=== PATIENT | female | born 1945 | race Asian ===

== ENCOUNTER → 2017-02-23 | Outpatient (CLI) | payer MEDICARE, OTHER ==
[~2017-02-23] MED LIST: PERCOCET 325 MG1 TA2 PO; ZOCOR 10MG10 MG PO
== END ==
LOC: MC.RAD 09:10
DX: Z12.31 Encounter for screening mammogram for malignant neoplasm of breast (principal)

== ENCOUNTER 2017-07-13 20:13 | Emergency (ER) | payer MEDICARE, OTHER ==
[~2017-07-13] VITALS: Ht 162.6 cm; Wt 59.1 kg
[2017-07-13 20:16] VITALS: BP 188/91; TEMP 98.9
[2017-07-13] MEDS ORDERED: ASPIRIN 81M81 MG/TA2 PO (20:19)
[2017-07-13] MEDS ORDERED: VITAMIN D31000 I1 PO (20:20)
[2017-07-13 20:38] LABS: COLLECTION METHOD CLEAN CATCH
[2017-07-13 20:57] LABS: AMORPHOUS CRYSTAL Present /uL; MUCOUS Present /lpf; PH 8 (5-8); SQUAMOUS EPITHELIAL 0-2 /hpf; URINE APPEARANCE Hazy; URINE BACTERIA None Seen /hpf; URINE BILIRUBIN Negative (NEGATIVE); URINE BLOOD 2+ (NEGATIVE); URINE COLOR Yellow; URINE GLUCOSE Negative (NEGATIVE); URINE KETONE Negative (NEGATIVE); URINE LEUKOCYTE ESTERASE 3+ (NEGATIVE); URINE PROTEIN(semi-quant) Negative (NEGATIVE); URINE RBC 20-50 /hpf; URINE UROBILINOGEN Negative (NEGATIVE); URINE WBC >50 /hpf
[2017-07-13] MEDS ORDERED: LEVAQUIN 2250 MG/TAB PO (21:10)
[2017-07-13 21:26] VITALS: PULSE 71
== END 2017-07-13 21:26 | disposition home or self-care (01) ==
LOC: COL.ER 20:13
PROVIDERS: Nurse Practitioner
DX: N39.0 Urinary tract infection, site not specified (principal); Z87.442 Personal history of urinary calculi; Z98.51 Tubal ligation status; Z79.82 Long term (current) use of aspirin

== ENCOUNTER → 2018-03-11 | Outpatient (CLI) | payer MEDICARE, OTHER ==
[~2018-03-11] MED LIST changes: +ASPIRIN 81M81 MG/TA2 PO; +LEVAQUIN 2250 MG/TAB PO; +VITAMIN D31000 I1 PO
== END ==
LOC: MC.RAD 12:42
DX: Z12.31 Encounter for screening mammogram for malignant neoplasm of breast (principal)

== ENCOUNTER → 2019-01-17 | Outpatient (CLI) | payer MEDICARE, OTHER | LOC: COL.RAD 06:53 | DX: B19.20 Unspecified viral hepatitis C without hepatic coma (principal); B19.10 Unspecified viral hepatitis B without hepatic coma ==

== ENCOUNTER → 2019-03-17 | Outpatient (CLI) | payer MEDICARE, OTHER | LOC: MC.RAD 08:11 | DX: Z12.31 Encounter for screening mammogram for malignant neoplasm of breast (principal) ==

== ENCOUNTER → 2019-03-31 | Outpatient (CLI) | payer MEDICARE, OTHER | LOC: COL.RAD 03-28 09:45 | DX: N28.1 Cyst of kidney, acquired (principal); R03.0 Elevated blood-pressure reading, without diagnosis of hypertension ==

== ENCOUNTER 2019-06-13 06:45 | Outpatient (CLI) | payer MEDICARE, OTHER ==
[~2019-06-13] VITALS: Ht 162.6 cm; Wt 60.6 kg
[2019-06-13] VITALS (8 sets, daily range): BP systolic 124–146; BP diastolic 73–83; PULSE 45–57; TEMP 97.8
[~2019-06-13 06:45] MED LIST changes: +MASON NATURAL2000 IU PO; -VITAMIN D31000 I1 PO
[2019-06-13 07:30] LABS: HEMATOCRIT 37.7 % (37.0-47.0); HEMOGLOBIN 12.7 g/dl (12.5-16.0); MEAN CELL VOLUME 96 fl (80.0-100.0); MEAN CORPUSCULAR HEMOGLOBIN 32 pg (27.0-31.0); MEAN CORPUSCULAR HGB CONC 34 g/dl (33.0-37.0); MEAN PLATELET VOLUME 9.6 fl (7.4-10.4); PLATELET COUNT 154 K/mm3 (130-400); RED BLOOD COUNT 3.93 M/mm3 (4.10-5.30); REDCELL DISTRIBUTION WIDTH-CV 13.2 % (11.5-14.5)
[2019-06-13 07:41] LABS: CALCIUM 8.5 mg/dL (8.4-10.2); CREATININE, serum 0.78 (0.52-1.25); POTASSIUM 4.5 mmol/L (3.4-5.0)
[2019-06-13] MEDS ORDERED: FOSAMAX 70MG TA70 MG PO (08:04)
[2019-06-13] MEDS ORDERED: NORVASC 5MG5 MG/TAB PO (08:05)
[2019-06-13] MEDS ORDERED: TAMBOCOR50 MG PO (08:05)
--- NOTE | 2019-06-13 11:24 | NUR ---
Discharge instructions given to pt.pt verbalizes understanding.INT removed,catheter tip intact.Pt escortedout by this nurse via wheelchair.
== END 2019-06-13 11:26 | disposition home or self-care (01) ==
LOC: COL.RAD 06:45
PROVIDERS: Internal Medicine Cardiovascular Disease
DX: I34.0 Nonrheumatic mitral (valve) insufficiency (principal); Q21.1 Atrial septal defect; I51.7 Cardiomegaly
CPT/HCPCS: J2704; J7120

== ENCOUNTER → 2019-06-19 | Outpatient (CLI) | payer MEDICARE, OTHER ==
[~2019-06-19] MED LIST changes: +FOSAMAX 70MG TA70 MG PO; +NORVASC 5MG5 MG/TAB PO; +TAMBOCOR50 MG PO
== END ==
LOC: COL.RAD 08:00
DX: N28.1 Cyst of kidney, acquired (principal); B19.10 Unspecified viral hepatitis B without hepatic coma

== ENCOUNTER 2019-07-13 09:31 | Day surgery (SDC) | payer MEDICARE, OTHER ==
[2019-07-13] VITALS (9 sets, daily range): BP systolic 123–154; BP diastolic 59–73; PULSE 51–65; TEMP 97–98.4
[~2019-07-13] VITALS: Ht 162.7 cm; Wt 60.8 kg
[2019-07-13 10:04] LABS: HEMATOCRIT 37.8 % (37.0-47.0); HEMOGLOBIN 12.5 g/dl (12.5-16.0); MEAN CELL VOLUME 97 fl (80.0-100.0); MEAN CORPUSCULAR HEMOGLOBIN 32 pg (27.0-31.0); MEAN CORPUSCULAR HGB CONC 33 g/dl (33.0-37.0); MEAN PLATELET VOLUME 10.2 fl (7.4-10.4); PLATELET COUNT 134 K/mm3 (130-400); RED BLOOD COUNT 3.91 M/mm3 (4.10-5.30)
[2019-07-13 10:05] LABS: PROTHROMBIN TIME 11.9 SECONDS (9.7-12.8)
[2019-07-13 10:13] LABS: CALCIUM 8.7 mg/dL (8.4-10.2); CREATININE, serum 0.8 (0.52-1.25); POTASSIUM 4.7 mmol/L (3.4-5.0)
[2019-07-13] MEDS ORDERED: VOLTAREN GEL 1%1 TU TP (10:31)
[2019-07-13] MEDS ORDERED: ADVIL200 MG PO (10:32)
--- NOTE | 2019-07-13 10:44 | NUR ---
Pt to procedure,report to BHARATI Hough.
--- NOTE | 2019-07-13 10:54 | NUR ---
SEE MERGE FOR MEDICATION ADMINISTRATION TIMES AND INTRA AND POST SEDATION ASSESSMENTS.
--- NOTE | 2019-07-13 12:19 | NUR ---
BEDSIDE HAND OFF REPORT GIVEN TO BHARATI KITCHEN. HEMOSTASIS NOTED, DRESSING C/D/I. ARM SLING IN PLACE. PT ALERT AND ORIENTED. FAMILY AT BEDSIDE. NS INFUSING AT 100ML/HR.
--- NOTE | 2019-07-13 17:30 | NUR ---
Pt with uneventful shift. VSS. Ice pack in place to left chest. No further needs reported. Call light in reach.
--- NOTE | 2019-07-13 20:00 | NUR ---
Initial shift assessment done- VSS, states having some pain to pacemaker site 02/08- will give Mars as ordered, Ice to incision, Sling to left arm on, Tele on, Up in room on own- steady on feet-. No requests
[2019-07-14 03:50] VITALS: BP 120/64; PULSE 60
--- NOTE | 2019-07-14 05:42 | NUR ---
Quiet night tonight-- no requests, denies need for pain med at this time-VSS, left arm sling on- chest dressing dry and intact
[2019-07-14 07:33] VITALS: BP 128/64; PULSE 60; TEMP 97.4
[2019-07-14] MEDS ORDERED: CEPHALEXIN500 M1 PO (08:59)
[2019-07-14] MEDS ORDERED: TAMBOCOR 1100 MG/TAB PO (09:00)
[2019-07-14] MEDS ORDERED: CARDIZEM CD 12120 MG PO (09:00)
--- NOTE | 2019-07-14 11:20 | NUR ---
DISCHARGE EDUCATION PROVIEDED. NO ISSUES OR CONSERNS VOICED. NO QUESTIONS VOICED. IV AND TELE REMOVED WITHOUT ISSUES. THIS NURSE WALKED PT MICH
== END 2019-07-14 11:20 | disposition home or self-care (01) ==
LOC: COL.CAR 09:31 → MEDICAL 12:00 → COL.CAR 07-14 11:20
PROVIDERS: Internal Medicine Cardiovascular Disease
DX: I45.9 Conduction disorder, unspecified (principal); R42 Dizziness and giddiness; I10 Essential (primary) hypertension; B19.10 Unspecified viral hepatitis B without hepatic coma; E78.5 Hyperlipidemia, unspecified; R73.01 Impaired fasting glucose; M81.0 Age-related osteoporosis without current pathological fracture; M65.4 Radial styloid tenosynovitis [de Quervain]; Z95.0 Presence of cardiac pacemaker; Z79.82 Long term (current) use of aspirin; Z79.51 Long term (current) use of inhaled steroids; Z80.9 Family history of malignant neoplasm, unspecified; Z82.49 Family history of ischemic heart disease and other diseases of the circulatory system
CPT/HCPCS: OP; J0690; J2250; J3010; J7030

== ENCOUNTER → 2019-12-26 | Outpatient (CLI) | payer MEDICARE, OTHER ==
[~2019-12-26] MED LIST changes: +ADVIL200 MG PO; +CARDIZEM CD 12120 MG PO; +CEPHALEXIN500 M1 PO; +TAMBOCOR 1100 MG/TAB PO; +VOLTAREN GEL 1%1 TU TP
== END ==
LOC: COL.RAD 07:26
DX: B19.10 Unspecified viral hepatitis B without hepatic coma (principal); K83.8 Other specified diseases of biliary tract; K82.8 Other specified diseases of gallbladder

== ENCOUNTER → 2020-01-22 | Outpatient (CLI) | payer MEDICARE, OTHER | LOC: COL.RAD 10:39 | DX: B19.20 Unspecified viral hepatitis C without hepatic coma (principal); K76.89 Other specified diseases of liver; K83.8 Other specified diseases of biliary tract; K82.8 Other specified diseases of gallbladder | CPT/HCPCS: Q9967 ==

== ENCOUNTER 2022-02-25 10:08 | Emergency (ER) | payer MEDICARE, OTHER ==
[~2022-02-25] VITALS: Ht 162.6 cm; Wt 61.4 kg
[2022-02-25 10:15] VITALS: TEMP 98
[2022-02-25 10:48] LABS: BASO % 0.5 % (0.0-2.0); EOS # 0.1 K/mm3 (0.0-0.7); GRAN # 2.9 K/mm3 (1.4-6.5); GRAN % 51.5 % (42.2-75.2); HEMATOCRIT 38.4 % (37.0-47.0); HEMOGLOBIN 12.6 g/dl (12.5-16.0); LYMPH % 36.6 % (20.0-51.0); MEAN CELL VOLUME 90 fl (80.0-100.0); MEAN CORPUSCULAR HEMOGLOBIN 29 pg (27-31); MEAN CORPUSCULAR HGB CONC 33 g/dl (33.0-37.0); MONO # 0.5 K/mm3 (0.1-0.6); MONO % 9.2 % (1.7-9.3); PLATELET COUNT 220 K/mm3 (130-400); RED BLOOD COUNT 4.29 M/mm3 (4.10-5.30); REDCELL DISTRIBUTION WIDTH-CV 14.2 % (11.5-14.5)
[2022-02-25 10:54] LABS: PROTHROMBIN TIME 11.5 SECONDS (9.7-12.8)
[2022-02-25 10:57] LABS: PARTIAL THROMBOPLASTIN TIME 31.1 SECONDS (26.0-37.0)
[2022-02-25 10:58] LABS: ALANINE AMINOTRANSFERASE 19 U/L (0-55); ALBUMIN 3.6 gm/dL (3.4-4.8); ALKALINE PHOSPHATASE 102 U/L (40-150); ANION GAP 11 mmol/L (7-16); AST,SGOT 26 U/L (5-34); BILIRUBIN,TOTAL 0.5 mg/dL (0.2-1.2); BLOOD UREA NITROGEN 17 mg/dL (10-20); CALCIUM 9.4 mg/dL (8.4-10.2); CARBON DIOXIDE 22 mmol/L (23-31); CHLORIDE 106 mmol/L (98-107); CREATININE, serum 1.23 mg/dL (0.57-1.11); GLUCOSE 138 mg/dL (70-99); SODIUM 139 mmol/L (136-145)
[2022-02-25 11:12] LABS: TROPONIN-I < 0.010 ng/mL (0.00-0.033)
[2022-02-25 12:36] VITALS: BP 116/67; PULSE 63
== END 2022-02-25 12:44 | disposition home or self-care (01) ==
LOC: COL.ER 10:08
PROVIDERS: Family Medicine
DX: R07.9 Chest pain, unspecified (principal); G44.209 Tension-type headache, unspecified, not intractable; Z95.0 Presence of cardiac pacemaker
CPT/HCPCS: J0780

== ENCOUNTER 2022-03-02 06:48 | Day surgery (SDC) | payer MEDICARE, OTHER ==
[~2022-03-02] VITALS: Ht 162.6 cm; Wt 62.3 kg
[2022-03-02] VITALS (116 sets, daily range): BP systolic 131–162; BP diastolic 71–89; PULSE 59–61; TEMP 98.4; O2SAT 90–98
[2022-03-02 07:32] LABS: HEMOGLOBIN 11.6 g/dl (12.5-16.0); MEAN CELL VOLUME 89 fl (80.0-100.0); MEAN CORPUSCULAR HEMOGLOBIN 30 pg (27-31); MEAN CORPUSCULAR HGB CONC 33 g/dl (33.0-37.0); PLATELET COUNT 185 K/mm3 (130-400); RED BLOOD COUNT 3.92 M/mm3 (4.10-5.30); REDCELL DISTRIBUTION WIDTH-CV 14.6 % (11.5-14.5)
[2022-03-02 07:41] LABS: PROTHROMBIN TIME 11.8 SECONDS (9.7-12.8)
[2022-03-02 07:43] LABS: PARTIAL THROMBOPLASTIN TIME 33.1 SECONDS (26.0-37.0)
[2022-03-02 07:49] LABS: CALCIUM 8.8 mg/dL (8.4-10.2); CREATININE, serum 0.89 mg/dL (0.57-1.11); POTASSIUM 4.1 mmol/L (3.5-4.5)
[2022-03-02] MEDS ORDERED: VEMLIDY25 MG PO (08:11)
[2022-03-02] MEDS ORDERED: VITAMIN D31000 IU PO (08:12)
[2022-03-02] MEDS ORDERED: TIAZAC180 MG PO (08:12)
[2022-03-02] MEDS ORDERED: ASPIRIN E.C. 8181 MG PO (08:12)
[2022-03-02] MEDS ORDERED: PROAIR HFA0.09 MG/AC IH (08:13)
[2022-03-02] MEDS ORDERED: IMDUR 30MG30 MG/TAB PO (08:14)
[2022-03-02] MEDS ORDERED: CLARITIN 1010 MG/TAB PO (08:14)
--- NOTE | 2022-03-02 09:25 | NUR ---
SEE MERGE FOR ALL MEDICATION ADMINISTRATION TIMES, INTRA AND POST SEDATION ASSESSMENTS
--- NOTE | 2022-03-02 13:26 | NUR ---
DC instructions reviewed with pt and . Both expressed understanding. IV DC'd, site wrapped with coban. Pt is steady on feet around room. Air was removed from TR band in 2ml increments with no bleeding or complication. Site dressed with folded 2x2 and gauze. She is assisted out to 's car by wheelchair with belongings.
== END 2022-03-02 13:26 | disposition home or self-care (01) ==
LOC: COL.CAR 06:48
PROVIDERS: Internal Medicine Cardiovascular Disease
DX: I25.10 Atherosclerotic heart disease of native coronary artery without angina pectoris (principal)
CPT/HCPCS: C1769; J1644; J2250; J3010

== ENCOUNTER 2022-09-23 12:35 | Emergency (ER) | payer MEDICARE, OTHER ==
[~2022-09-23] VITALS: Ht 162.6 cm; Wt 61.4 kg
[~2022-09-23 12:35] MED LIST changes: +ASPIRIN E.C. 8181 MG PO; +CALCIUM 600600 MG PO; +CLARITIN 1010 MG/TAB PO; +ELIQUIS 5MG PO; +IMDUR 30MG30 MG/TAB PO; +LIPITOR 40MG TA40 MG PO; +PROAIR HFA0.09 MG/AC IH; +TIAZAC180 MG PO; +TYLENOL 500MG500 MG PO; +VEMLIDY25 MG PO; +VITAMIN D31000 IU PO
[2022-09-23 12:45] VITALS: BP 128/76; TEMP 99
[2022-09-23 13:32] LABS: BASO % 0.2 % (0.0-2.0); EOS % 0.5 % (0.0-4.0); GRAN # 5.6 K/mm3 (1.4-6.5); GRAN % 85.2 % (42.2-75.2); HEMATOCRIT 39.8 % (37.0-47.0); HEMOGLOBIN 12.9 g/dl (12.5-16.0); LYMPH # 0.7 K/mm3 (1.2-3.4); LYMPH % 11.1 % (20.0-51.0); MEAN CELL VOLUME 94 fl (80.0-100.0); MEAN CORPUSCULAR HEMOGLOBIN 30 pg (27-31); MEAN CORPUSCULAR HGB CONC 32 g/dl (33.0-37.0); MEAN PLATELET VOLUME 8.7 fl (7.4-10.4); MONO # 0.2 K/mm3 (0.1-0.6); MONO % 2.8 % (1.7-9.3); PLATELET COUNT 220 K/mm3 (130-400); RED BLOOD COUNT 4.24 M/mm3 (4.10-5.30); REDCELL DISTRIBUTION WIDTH-CV 14.2 % (11.5-14.5)
[2022-09-23 13:48] LABS: ALBUMIN 3.5 gm/dL (3.4-4.8); BILIRUBIN,TOTAL 0.6 mg/dL (0.2-1.2); CALCIUM 8.4 mg/dL (8.4-10.2); CREATININE, serum 0.88 mg/dL (0.57-1.11); POTASSIUM 4.1 mmol/L (3.5-4.5); TOTAL PROTEIN 7.9 gm/dL (6.2-8.1)
[2022-09-23 14:19] VITALS: PULSE 86
== END 2022-09-23 14:20 | disposition home or self-care (01) ==
LOC: COL.ER 12:35
PROVIDERS: Family Medicine
DX: A08.4 Viral intestinal infection, unspecified (principal); Z20.822 Contact with and (suspected) exposure to COVID-19
CPT/HCPCS: J7040

== ENCOUNTER 2023-09-06 09:31 | Day surgery (SDC) | payer MEDICARE, OTHER ==
[~2023-09-06] VITALS: Ht 162.6 cm; Wt 59.9 kg
[2023-09-06] MEDS ORDERED: TAMBOCOR 1100 MG/TAB PO (09:59)
[2023-09-06] MEDS ORDERED: Ondansetron 4 MG/2 ML VIAL IV PRN (10:00)
[2023-09-06] MEDS ORDERED: Lidocaine PF 2% (20 MG/ML) 5 ML VIAL ONE (10:04)
[2023-09-06] MEDS ORDERED: LR 1,000 ML IV SCH (10:05)
[2023-09-06 10:11] VITALS: BP 154/94; PULSE 72; TEMP 97.4
[2023-09-06 10:35] VITALS: BP 137/90; PULSE 86; TEMP 97.2
[2023-09-06 10:45] VITALS: BP 131/105; PULSE 61
[2023-09-06 10:58] VITALS: BP 154/98; PULSE 85
--- NOTE | 2023-09-06 11:03 | NUR ---
1035- PATIENT RETURNS TO [facility] [place] [facility] VIA [facility]ART. PT AWAKE AND ALERT. RESPIRATIONS UNLABORED. AMBULATED TO RECLINER CHAIR WITH 2:1 SBA. PT DENIES NAUSEA OR ABDOMINAL PAIN. HOOKED UP TO MONITOR AND VS OBTAINED. CALL LIGHT AT SIDE AND SPOUSE PRESENT. 1040- PATIENT TOLERATING ORANGE JUICE AND MUFFIN WITHOUT NAUSEA OR DIFFICULTY SWALLOWING. 1050- D/C INSTRUCTIONS REVIEWED WITH PATIENT. PT VERBALIZED UNDERSTANDING AND A COPY OF INSTRUCTIONS PROVIDED IN D/C FOLDER. 1055- PATIENT DRESSES SELF. 1103- PATIENT DISCHARGED FROM UNIT VIA W/C TO A PERSONAL VEHICLE. PT LEFT HOSPITAL IN STABLE CONDITION.
== END 2023-09-06 11:03 | disposition home or self-care (01) ==
LOC: SDCO 09:31
DX: K29.30 Chronic superficial gastritis without bleeding (principal); K74.60 Unspecified cirrhosis of liver; Z95.0 Presence of cardiac pacemaker
CPT/HCPCS: J2704; J7120